=== PATIENT | male | born 1950 | race Caucasian/White ===

== ENCOUNTER 2016-10-14 22:12 | Emergency (ER) | payer MEDICARE ==
[~2016-10-14] VITALS: Ht 175.3 cm; Wt 74.8 kg
[2016-10-14 22:12] VITALS: BP_SYST 131
[2016-10-14] MEDS ORDERED: NACL 0.9% 1,000 ML IV ONE (23:15)
[2016-10-14] MEDS ORDERED: ASPIRIN 81 MG TAB.CHEW PO ONE (23:15)
[2016-10-14 23:32] LABS: BASOPHILS % (AUTO) 0.3 % (0.0-2.0); EOSINOPHILS # (AUTO) 0.1 K/uL (0.0-0.4); EOSINOPHILS % (AUTO) 1.1 % (0.0-4.0); HEMATOCRIT 48.5 % (36-54); LYMPHOCYTES # (AUTO) 2.1 K/uL (1.0-5.5); MEAN CORPUSCULAR HEMOGLOBIN 31 pg (27-31); MEAN CORPUSCULAR HGB CONC 33 % (32-36); MEAN CORPUSCULAR VOLUME 92 fL (79.0-98.0); MONOCYTES # (AUTO) 0.6 K/uL (0.0-1.0); MONOCYTES % (AUTO) 9.1 % (1.7-9.3); NEUTROPHILS # (AUTO) 4.3 K/uL (1.8-7.7); NEUTROPHILS % (AUTO) 59.5 % (40.0-70.0); PLATELET COUNT (AUTO) 207 K/uL (130-430); RED BLOOD CELL COUNT(AUTO) 5.26 MIL/uL (4.2-6.2); WHITE BLOOD COUNT (AUTO) 7.1 K/uL (4.8-10.8)
[2016-10-14 23:37] LABS: CALCIUM 8.6 mg/dL (8.4-11.0); CREATININE 1.29 mg/dL (0.55-1.30)
[2016-10-14 23:41] LABS: PROTHROMBIN TIME 10.4 SECS (9.5-12.5)
[2016-10-14 23:42] LABS: ALBUMIN 3.9 g/dL (3.4-4.8); TOTAL BILIRUBIN 0.6 mg/dL (0.0-1.0)
[2016-10-15 01:15] VITALS: BP_SYST 127
== END 2016-10-15 01:15 | disposition left against medical advice (07) ==
LOC: SED 22:12
DX: G45.9 Transient cerebral ischemic attack, unspecified (principal)
CPT/HCPCS: 36415; 70450-TC; 71010; 80053; 82962; 84484; 85025; 85610-TC; 85730-TC; 93005; 96360; 96361; 99285

== ENCOUNTER 2022-03-15 10:42 | Emergency (ER) | payer MEDICARE ==
[~2022-03-15] VITALS: Ht 172.7 cm; Wt 68.0 kg
[2022-03-15 10:49] VITALS: BP_SYST 130
== END 2022-03-15 12:20 | disposition left against medical advice (07) ==
LOC: SED 10:42
DX: M25.512 Pain in left shoulder (principal); Z53.21 Procedure and treatment not carried out due to patient leaving prior to being seen by health care provider

== ENCOUNTER 2022-07-28 05:19 | Emergency (ER) | payer MEDICARE ==
[~2022-07-28] VITALS: Ht 177.8 cm; Wt 72.6 kg
[2022-07-28 05:19] VITALS: BP_SYST 141
--- NOTE | 2022-07-28 05:19 | NUR ---
Triaged and placed patient to ER bed 2 for evaluation. Bed placed in lowest position with side rails up. Instructed to notify ED staff for any changes in condition or worsening of symptoms while waiting to be seen by a provider. Patient verbalized understanding.
--- NOTE | 2022-07-28 05:24 | NUR ---
Dr. Angel at bedside examining the patient.
--- NOTE | 2022-07-28 05:25 | NUR ---
Code Stroke called at 0525.
--- NOTE | 2022-07-28 05:27 | NUR ---
Patient taken to CT.
[2022-07-28] MEDS ORDERED: iohexoL 350 mgI/mL, 100 ML INFUS..BTL IV ONE (05:34)
--- NOTE | 2022-07-28 05:50 | NUR ---
Patient is back from CT.
[2022-07-28 05:52] LABS: BASOPHILS % (AUTO) 0.4 % (0.0-2.0); EOSINOPHILS # (AUTO) 0.1 K/uL (0.0-0.4); EOSINOPHILS % (AUTO) 1.8 % (0.0-4.0); HEMATOCRIT 43.5 % (36-54); LYMPHOCYTES # (AUTO) 2.2 K/uL (1.0-5.5); LYMPHOCYTES % (AUTO) 37.6 % (20.5-51.5); MEAN CORPUSCULAR HEMOGLOBIN 31 pg (27-31); MEAN CORPUSCULAR HGB CONC 35 % (32-36); MEAN CORPUSCULAR VOLUME 91 fL (79.0-98.0); MONOCYTES # (AUTO) 0.6 K/uL (0.0-1.0); MONOCYTES % (AUTO) 9.9 % (1.7-9.3); NEUTROPHILS % (AUTO) 50.3 % (40.0-70.0); PLATELET COUNT (AUTO) 163 K/uL (130-430); RED BLOOD CELL COUNT(AUTO) 4.81 MIL/uL (4.2-6.2); RED CELL DISTRIBUTION WIDTH 13.6 % (9.0-15.0); WHITE BLOOD COUNT (AUTO) 5.9 K/uL (4.8-10.8)
--- NOTE | 2022-07-28 05:54 | NUR ---
Health Worker at bedside.
[2022-07-28 06:10] LABS: ALANINE AMINOTRANSFERASE 23 U/L (12-78); ALBUMIN 3.7 g/dL (3.4-4.8); ANION GAP 7 (5-15); ASPARTATE AMINOTRANSFERASE 22 U/L (10-37); CALCIUM 8.7 mg/dL (8.4-11.0); CHLORIDE 102 mmol/L (98-107); CREATININE 1.21 mg/dL (0.55-1.30); GLUCOSE 99 mg/dL (70-99); TOTAL BILIRUBIN 0.5 mg/dL (0.0-1.0); UREA NITROGEN, BLOOD 28 mg/dL (8-21)
--- NOTE | 2022-07-28 06:18 | NUR ---
Dr. Angel at bedside discussing test results.
--- NOTE | 2022-07-28 06:25 | NUR ---
Passed the swallow screen at 0625.
--- NOTE | 2022-07-28 06:37 | NUR ---
TELE NEURO DONE AT BEDSIDE.
[2022-07-28 07:13] LABS: PROTHROMBIN TIME 9.9 SECS (9.5-12.5)
--- NOTE | 2022-07-28 07:26 | NUR ---
Report given and care transferred to [facility] for continuity of care.
--- NOTE | 2022-07-28 07:33 | NUR ---
RECIEVED REPORT FROM ADAN AND ASSUMED CARE PT RESTING COMFORTABLY VSS BEDSIDE.
--- NOTE | 2022-07-28 08:00 | NUR ---
assumed pt care pt aox4 gcs 15 [facility] - pt sitting up in bed at bedside. bs 94. pt awaiting transfer to [facility]
[2022-07-28 08:07] LABS: CHOLESTEROL 121 mg/dL (<200)
[2022-07-28 08:18] LABS: BILIRUBIN,URINE NEGATIVE (NEGATIVE); CLARITY/URINE CLEAR (CLEAR); COLOR,URINE YELLOW (YELLOW); GLUCOSE,URINE NEGATIVE (NEGATIVE); KETONES,URINE 1+ (NEGATIVE); LEUKOCYTE ESTERASE ,URINE NEGATIVE (NEGATIVE); NITRITE, URINE NEGATIVE (NEGATIVE); PH,URINE 6.5 (5.0-8.0); PROTEIN URINE NEGATIVE (NEGATIVE); UROBILINOGEN,URINE 0.2 (0.2-1.0)
[2022-07-28 08:20] LABS: BLOOD, URINE TRACE (NEGATIVE)
[2022-07-28 08:30] LABS: BARBITURATE, URINE NEGATIVE (NEG <=200); BENZODIAZEPINE, URINE NEGATIVE (NEG <=150); CANNABINOID, URINE NEGATIVE (NEG <=50); COCAINE, URINE NEGATIVE (NEG <=150); METHAMPHETAMINES SCREEN,URINE NEGATIVE (NEG <=500); OPIATE, URINE NEGATIVE (NEG <=100); PHENCYCLIDINE SCREEN,URINE NEGATIVE (NEG <=25); UR TRICYCLIC ANTIDEPRESSANTS NEGATIVE (NEG <=300); URINE AMPHETAMINE NEGATIVE (NEG <=500); URINE METHADONE NEGATIVE (NEG <=200); URINE OXYCODONE SCREEN NEGATIVE (NEG <=100); URINE PROPOXYPHENE SCREEN NEGATIVE (NEG <=300)
[2022-07-28 08:40] LABS: BACTERIA,URINE None Seen /HPF (None Seen); WBC,URINE 0-3 /HPF (0-3)
--- NOTE | 2022-07-28 08:52 | NUR ---
pt resting comfortably v/s stable bs 94 family at [facility]
--- NOTE | 2022-07-28 09:50 | NUR ---
[facility]SF[facility] LARISSA SALAZAR, P. [phone] [facility] ETA 1045 SPOKE TO ARIK PAIGE EPRP
--- NOTE | 2022-07-28 10:25 | NUR ---
PT AWAITNG TRANSFER TO [facility] EMILY UPDATED ON PT STATUS [phone]
[2022-07-28 11:23] VITALS: BP_SYST 121
--- NOTE | 2022-07-28 11:26 | NUR ---
Patient to be transferred to [facility]. Is being transferred due to higher level of care. Receiving facility has accepting physician and available space. ER physician has signed transfer form. Patient or responsible green party has agreed to transfer and signed form. Patient belongings inventoried and will be sent with patient. Copy of nursing notes, lab reports, EKG, Physicians Orders and X-rays to be sent with patient. Report called to RECIEVING RN at receiving facility. Receiving physician is DR SALAZAR. [facility] has been called for transfer. ETA is 1140.
== END 2022-07-28 11:26 | disposition short-term general hospital (02) ==
LOC: SED 05:19
DX: D68.9 Coagulation defect, unspecified (principal); G45.9 Transient cerebral ischemic attack, unspecified; R41.82 Altered mental status, unspecified; Z79.899 Other long term (current) drug therapy
CPT/HCPCS: 99285; 70496; 71045; 82465; 80307; 80053; 82962; 85025; 85610; 85730; 86886; 86900; 86901; 84484; 36415; 93005; 70498; 81000; 70450; 76376; Q9967